=== PATIENT | female | born 1950 | race Caucasian/White ===

== ENCOUNTER 2017-01-19 13:56 | Emergency (ER) | payer MEDICARE | END 2017-01-19 14:30 | disposition home or self-care (01) | LOC: SCSER 13:56 | DX: M19.032 Primary osteoarthritis, left wrist (principal); M19.031 Primary osteoarthritis, right wrist; E78.5 Hyperlipidemia, unspecified; I10 Essential (primary) hypertension; M06.9 Rheumatoid arthritis, unspecified; Z79.899 Other long term (current) drug therapy | CPT/HCPCS: 99283 ==

== ENCOUNTER 2017-02-16 17:31 | Emergency (ER) | payer MEDICARE | END 2017-02-16 19:56 | disposition critical access hospital (66) | LOC: SCSER 17:31 | DX: J11.1 Influenza due to unidentified influenza virus with other respiratory manifestations (principal); E78.5 Hyperlipidemia, unspecified; I10 Essential (primary) hypertension; M06.9 Rheumatoid arthritis, unspecified; Z79.899 Other long term (current) drug therapy | CPT/HCPCS: 99283 ==

== ENCOUNTER 2017-08-25 14:02 | Outpatient (CLI) | payer MEDICARE | END 2017-08-25 14:03 | disposition home or self-care (01) | LOC: BICMAMMO 14:02 | PROVIDERS: ATTEND Internal Medicine | DX: Z12.31 Encounter for screening mammogram for malignant neoplasm of breast (principal); M85.80 Other specified disorders of bone density and structure, unspecified site; M85.89 Other specified disorders of bone density and structure, multiple sites; Z80.3 Family history of malignant neoplasm of breast | CPT/HCPCS: 77063; 77067; 77080 ==

== ENCOUNTER 2018-03-11 08:47 | Emergency (ER) | payer MEDICARE | END 2018-03-11 09:13 | disposition home or self-care (01) | LOC: SCSER 08:47 | DX: J06.9 Acute upper respiratory infection, unspecified (principal); I10 Essential (primary) hypertension; M06.9 Rheumatoid arthritis, unspecified; Z87.442 Personal history of urinary calculi; Z79.899 Other long term (current) drug therapy | CPT/HCPCS: 99283 ==

== ENCOUNTER 2018-09-14 09:19 | Outpatient (CLI) | payer MEDICARE ==
--- NOTE | 2018-09-14 10:19 | MMO ---
Bilateral MAMMO Bilat Screen [facility]. CLINICAL HISTORY: Patient is 68 years old and is seen for screening. The patient has the following family history of breast cancer: mother. The patient has no personal history of cancer. The patient has a history of left Excisional Biopsy - benign and right Ultrasound Guided Core Biopsy - benign. VIEWS: The views performed were: bilateral craniocaudal with tomosynthesis and bilateral mediolateral oblique with tomosynthesis. FILMS COMPARED: The present examination has been compared to prior imaging studies performed at [facility] on 07/27/2014, 08/03/2015, 08/05/2016 and 08/25/2017. MAMMOGRAM FINDINGS: There are scattered fibroglandular densities. Finding 1: There is a stable biopsy clip seen in the right breast. Finding 2: There are benign appearing calcifications seen in both breasts. There are no suspicious masses, suspicious calcifications, or new areas of architectural distortion. IMPRESSION: THERE IS NO MAMMOGRAPHIC EVIDENCE OF MALIGNANCY. A ROUTINE FOLLOW-UP MAMMOGRAM IN 1 YEAR IS RECOMMENDED. THE RESULTS OF THIS EXAM WERE SENT TO THE PATIENT. ACR BI-RADS Category 2 - Benign finding MAMMOGRAPHY NOTE: 1. A negative mammogram report should not delay a biopsy if a dominant of clinically suspicious mass is present. 2. Approximately 10% to 15% of breast cancers are not detected by mammography. 3. Adenosis and dense breasts may obscure an underlying neoplasm. Reported by: LUCA POTTER MD Electonically Signed: [id number]
== END 2018-09-14 09:20 | disposition home or self-care (01) ==
LOC: BICMAMMO 09:19
PROVIDERS: ATTEND Internal Medicine
DX: Z12.31 Encounter for screening mammogram for malignant neoplasm of breast (principal); Z80.3 Family history of malignant neoplasm of breast; Z91.89 Other specified personal risk factors, not elsewhere classified
CPT/HCPCS: 77063; 77067

== ENCOUNTER 2018-10-13 13:31 | Emergency (ER) | payer MEDICARE ==
[2018-10-13] MEDS ORDERED: predniSONE 20 MG TAB ONE (13:51)
[2018-10-13] MEDS ORDERED: Azithromycin 250 MG TAB ONE (13:51)
[2018-10-13 14:04] LABS: #Basophils 0.1 thou/uL (0.0-0.2); #Lymphocytes 1.1 thou/uL (1.20-3.40); #Monocytes 0.6 thou/uL (0.11-0.59); #Neutrophils 5.9 thou/uL (1.40-6.50); %Basophils 0.8 % (0.0-1.0); %Eosinophils 0.1 % (0.0-10.0); %Monocytes 8.1 % (0.0-10.0); %Neutrophils 77.1 % (42.0-75.0); Hemoglobin 15.5 g/dL (12.0-16.0); Mean Corpuscular HGB CONC 33.8 g/dL (32.0-36.0); Mean Corpuscular Hemoglobin 30.9 pg (27.0-31.0); Mean Corpuscular Volume 91.4 fL (78.0-98.0); Mean Platelet Volume 7.5 fL (7.4-10.4); Platelet Count 216 thou/uL (130-400); RBC Distribution Width 11.6 % (11.5-14.5); White Blood Cell (WBC) Count 7.7 thou/uL (4.8-10.8)
[2018-10-13 14:18] LABS: ALT (SGPT) 17 U/L (8-55); AST (SGOT) 17 U/L (5-34); Albumin 4.6 g/dL (3.4-4.8); Alkaline Phosphatase 57 U/L (40-150); Anion Gap 15 mmol/L (10-20); BUN (Urea Nitrogen) 12 mg/dL (9.8-20.1); Bilirubin, Total 0.9 mg/dL (0.2-1.2); Calc. Creatinine Clearance 0 mL/min (70-130); Calcium 10.2 mg/dL (7.8-10.44); Carbon Dioxide 27 mmol/L (23-31); Chloride 102 mmol/L (98-107); Estimated GFR-MDRD 78; Globulin 2.8 g/dL (2.4-3.5); Glucose 117 mg/dL (80-115); Potassium 3.8 mmol/L (3.5-5.1); Protein, Total 7.4 g/dL (6.0-8.3); Sodium 140 mmol/L (136-145)
--- NOTE | 2018-10-13 14:20 | RAD ---
EXAM: Chest PA and lateral: HISTORY: Cough COMPARISON: None FINDINGS: Heart: Mild cardiomegaly Aorta: Unremarkable Pulmonary vessels: Slightly prominent vascular prominence Costophrenic angles: Costophrenic angles are clear. Lungs: Diffuse interstitial prominence. Pneumothorax: No pneumothorax Osseous structures: No osseous abnormalities IMPRESSION: 1. Correlate for congestive heart failure. 2. Superimposed interstitial infiltrate cannot be excluded.
== END 2018-10-13 15:20 | disposition home or self-care (01) ==
LOC: SCSER 13:31
DX: R05 Cough (principal); E78.5 Hyperlipidemia, unspecified; I10 Essential (primary) hypertension; Z79.899 Other long term (current) drug therapy
CPT/HCPCS: 71046; 80053; 83880; 84484; 85025; 93005; J7512; J7620

== ENCOUNTER 2021-03-09 16:02 | Outpatient (CLI) | payer MEDICARE ==
[2021-03-10 12:54] LABS: SARS-CoV-2 PCR by NAA Not Detected (NotDetected)
== END 2021-03-09 16:03 | disposition home or self-care (01) ==
LOC: LABBT 16:02
PROVIDERS: ATTEND Ophthalmology Retina Specialist
DX: Z01.812 Encounter for preprocedural laboratory examination (principal); H33.002 Unspecified retinal detachment with retinal break, left eye; Z20.822 Contact with and (suspected) exposure to COVID-19
CPT/HCPCS: U0003; U0005

== ENCOUNTER 2021-03-13 08:40 | Day surgery (SDC) | payer MEDICARE ==
[2021-03-09 14:49] VITALS: BMI 28.6
[~2021-03-13 08:40] MED LIST: EPINEPHrine 0.3 MG in Ophthalmic Irrigation Solution 500 ML IRR SCH
[2021-03-13] MEDS ORDERED: Phenylephrine 2.5% Ophth Soln 5 ML BOT ONE (08:49)
[2021-03-13] MEDS ORDERED: Cyclopentolate 1% Opth Drop 2 ML BOT ONE (08:49)
[2021-03-13] MEDS ORDERED: Midazolam HCl 2 mg/2 ml Vial ONE (09:56)
[2021-03-13] MEDS ORDERED: Fentanyl 100 MCG/2 ML VIAL ONE (09:56)
[2021-03-13] MEDS ORDERED: Lidocaine 4% PF 5 ML AMP ONE (10:14)
[2021-03-13] MEDS ORDERED: Lidocaine 1% PF 5 ML VIAL ONE (10:14)
[2021-03-13] MEDS ORDERED: Bupivacaine PF 0.75% SDV 10 ML ONE (10:14)
[2021-03-13] MEDS ORDERED: Triamcinolone 40 MG/ML VIAL ONE (10:14)
[2021-03-13] MEDS ORDERED: Maxitrol 0.1% Opth Oint 3.5 GM TUBE ONE (10:14)
[2021-03-13] MEDS ORDERED: PROPOFOL 200 MG/20 ML VIAL ONE (10:14)
[2021-03-13] MEDS ORDERED: CEFAZOLIN 1 GM VIAL ONE (10:14)
== END 2021-03-13 11:50 | disposition home or self-care (01) ==
LOC: SDC 08:40
PROVIDERS: ATTEND Ophthalmology Retina Specialist
PROC: 08T53ZZ Resection of Left Vitreous, Percutaneous Approach (ICD-10-PCS; principal; 2021-03-13)
DX: H33.022 Retinal detachment with multiple breaks, left eye (principal); Z79.899 Other long term (current) drug therapy
CPT/HCPCS: 67025; J0171; J2250; J3010

== ENCOUNTER 2023-11-22 10:02 | Emergency (ER) | payer MEDICARE | END 2023-11-22 10:40 | disposition home or self-care (01) | LOC: ERS 10:02 | DX: S60.445A External constriction of left ring finger, initial encounter (principal); I10 Essential (primary) hypertension; W49.04XA Ring or other jewelry causing external constriction, initial encounter | CPT/HCPCS: 99283 ==